=== PATIENT | female | born 1985 ===

== ENCOUNTER 2016-12-29 07:59 | Day surgery (SDC) | payer BC ==
[~2016-12-29] VITALS: Ht 162.6 cm; Wt 77.1 kg
[2016-12-29] VITALS (8 sets, daily range): BP systolic 102–115; BP diastolic 55–77
--- NOTE | 2016-12-29 06:49 | Anethesia Preoperative Eval ---
Anesthesia Pre-op PMH/ROS General Date of Evaluation: Dec 29, 2016 Time of Evaluation: 09:22 Anesthesiologist: renée ASA Score: ASA 2 Mallampati Score Class I : Soft palate, uvula, fauces, pillars visible Class II: Soft palate, uvula, fauces visible Class III: Soft palate, base of uvula visible Class IV: Only hard plate visible Mallampati Classification: Class II Surgeon: nelly Diagnosis: rectal bleeding Surgical Procedure: colonoscopy Anesthesia History: none Social History: smoking - non-smoker Family History: no anesthesia problems Allergies: Coded Allergies: No Known Allergies (Unverified , 06/09/16) Medications: see eMAR Past Medical History Gastrointestinal/Genitourinary: Reports: GERD, other - hx/o placenta previa, pyelonephritis HEENT: Reports: glaucoma, other - astigmatism, missing upper left molar Hematology/Immune: Reports: anemia Musculoskeletal/Integumentary: Reports: other - bilateral carpal tunnel syndrome PSxH Narrative: LEEP Anesthesia Pre-op Phys. Exam Physician Exam Last Vital Signs Date Time Temp Pulse Resp B/P Pulse Ox O2 Delivery O2 Flow Rate FiO2 12/29/16 08:50 97.7 69 18 115/62 97 Room Air Constitutional: NAD Neurologic: CN 2-12 intact Cardiovascular: RRR Respiratory: CTA Gastrointestinal: S/NT/ND Airway Exam Mallampati Score: Class II MO: full Neck: supple TMD: 3fb ROM: full Teeth: missing - left upper molar Anesthesia Pre-op A/P Labs Labs Test 12/29/16 08:30 Urine HCG, Qualitative Negative Risk Assessment & Plan Assessment: rectal bleeding Plan: colonoscopy Status Change Before Surgery: No Pre-Antibiotics Drug: TRISTON Reyes Dec 29, 2016 06:49
[~2016-12-29 07:59] MED LIST: LR 1000ml 1,000 ML IVLG SCH; NKM
--- NOTE | 2016-12-29 09:20 | Short Stay Surgery H&P ---
History of Present Illness History of Present Illness Chief Complaint screening colon HPI Sara Villareal is a 31 year old female who was admitted on for Rectal Bleeding Patient History Allergies: Coded Allergies: No Known Allergies (Unverified , 06/09/16) PAST MEDICAL HISTORY: Past Surgeries: Social History: Medication History Scheduled No Known Medications* (NKM - No Known Medications*), 0 ., (Reported) Review of Systems Cardiovascular: Reports: no symptoms Respiratory: Reports: no symptoms Skeletal: Reports: no symptoms Gastrointestinal: Reports: no symptoms Genitourinary: Reports: no symptoms Neurologic: Reports: no symptoms Endocrine: Reports: no symptoms Hematologic: Reports: no symptoms Physical Exam Vital Signs Last Vital Signs Date Time Temp Pulse Resp B/P Pulse Ox O2 Delivery O2 Flow Rate FiO2 12/29/16 08:50 97.7 69 18 115/62 97 Room Air Labs Laboratory Tests Test 12/29/16 08:30 Urine HCG, Qualitative Pending Skin: normal HENT: normal Heart: normal Lungs: normal Abdomen: normal Extremities: normal Genitourinary: normal Plan Plan of Care Total colonoscopy Preop Interventions None Summary of Findings See the reports Final Diagnosis: Attestation Are the patient's medical conditions optimized for surgery? Attestation Response: yes MEGAN QUINN Dec 29, 2016 09:20
--- NOTE | 2016-12-29 09:21 | Pre-Procedure Note/Attestation ---
Pre-Procedure Note/Attestation Complete Prior to Procedure Planned Procedure: left Procedure Narrative: Total colon endoscopic exam Indications for Procedure Pre-Operative Diagnosis: R/O hemorrhoids VS polyps/tumors/colitis Attestation I attest that I discussed the nature of the procedure; its benefits; risks and complications; and alternatives (and the risks and benefits of such alternatives ), prior to the procedure, with the patient (or the patient's legal metals sales representative). I attest that, if there was a reasonable possibility of needing a blood transfusion, the patient (or the patient's legal metals sales representative) was given the [facility] standardized written summary, pursuant to the [place] Blood Safety Act ([place] Health and Safety Code # 1645, as amended). I attest that I re-evaluated the patient just prior to the surgery and that there has been no change in the patient's H&P, except as documented below: KAI,SAID Dec 29, 2016 09:21
[2016-12-29] MEDS ORDERED: Propofol 10mg/ml 20ml IV ONE (09:30)
[2016-12-29] MEDS ORDERED: LR 1000ml ONE (09:30)
[2016-12-29] MEDS ORDERED: Lidocaine 1% MPF 10mg/ml 5ml ONE (09:30)
--- NOTE | 2016-12-29 09:50 | Endoscopy Procedure Note ---
Endoscopy Procedure Note Indication for Procedure: Rectal bleeding Procedures Performed: colonoscopy - Poor colon prep. Minimal internal hemorrhoids (mostly cause of the rectal bleeding), redundant left colon; otherwise normal total colonoscopy. Specimen: none Pt Tolerated Procedure Well: Yes Estimated Blood Loss: none Anesthesiologist: Dr. Jenkins Anesthesia: moderate sedation Medication Given: see anesthesia record 50 yrs or older w/o bx or poly: No 10yrs. F/U not recommended: Yes 10 yrs. F/U needed: No 18 years or older w/prev. colo: No <3yrs. since last colonoscopy: No System Reason:<3 yrs.: MEGAN QUINN Dec 29, 2016 09:50
--- NOTE | 2016-12-29 09:52 | Discharge Instructions ---
Discharge Instructions Discharge Instructions Follow up with: eugenio the doctor after 2 weeks in the office For Congestive Heart Failure Reminder Report to your physician any weight gain of 5 pounds or more in one week. MEGAN QUINN Dec 29, 2016 09:52
[2016-12-29] MEDS ORDERED: LR 1000ml 1,000 ML IVLG SCH (10:03)
--- NOTE | 2016-12-29 10:08 | Immediate Post-Op Evaluation ---
Immediate Post-Op Evalulation Immediate Post-Op Evalulation Procedure: colonoscopy Date of Evaluation: Dec 29, 2016 IV Fluids: lr 350ml Blood Products: none Estimated Blood Loss: negligible Blood Pressure Systolic: 115 Blood Pressure Diastolic: 70 Pulse Rate: 69 Respiratory Rate: 19 O2 Sat by Pulse Oximetry: 100 Temperature (Fahrenheit): 97.0 Pain Score (1-10): 0 Nausea: No Vomiting: No Complications none Patient Status: awake, reacts, patent Hydration Status: adequate Drug: TRISTON Reyes Dec 29, 2016 10:08
[2016-12-29] MEDS ORDERED: Midazolam 2mg/2ml Inj IVP PRN (10:15)
[2016-12-29] MEDS ORDERED: DiphenhydrAMINE 50mg/ml Inj IVP PRN (10:15)
[2016-12-29] MEDS ORDERED: Atropine Inj 1mg/10ml Syr IV PRN (10:15)
[2016-12-29] MEDS ORDERED: Hydromorphone 0.5mg/0.5ml inj IVP PRN (10:15)
--- NOTE | 2016-12-29 23:00 | Operative Note - Dictated ---
DATE OF OPERATION: 12/29/2016 PROCEDURE: Total colonoscopy. SURGEON: Shaylee Huizar M.D. PREOPERATIVE DIAGNOSIS: History of rectal bleeding. POSTOPERATIVE DIAGNOSES: 1. Highly redundant left colon with minimal internal hemorrhoids, which mostly seems to be the cause of rectal bleeding. 2. Poor colonic preparation. MEDICATION USED: Per Dr. Calvin. INSTRUMENT: GIF Olympus video colonoscope. DESCRIPTION OF PROCEDURE: The patient after arriving to the endoscopy unit, was told about risks and benefits of the procedure, which she accepted and signed the informed consent. The patient had already been seen three months ago undergoing a trial of total colonoscopy for the same problem, however, because of the lack of adequate preparation, the examination was done partially and referred back to this examination with better cleanup hopefully. At this time, after adequate IV sedation, the scope gently passed through the anal area, which revealed evidence of minimal internal hemorrhoid. However, there were not friable. At this time, a retroflexion maneuver was also applied in the rectum, which revealed presence of minimal internal hemorrhoids without friability. The rest of the rectum looked normal. There was no evidence of ulcers, tumors, polyps, inflammatory process, etc. At this point, the scope was passed through highly redundant left colon gradually reaching towards the left splenic flexure. There was presence of liquidy stool along the colon signifying the lack of adequate preparation and as such, the presence of a small diminutive polypoid lesion could not be ruled out, though there was no any major pathology such as diverticular lesions, polyps or tumors found. At this time, there was no colitis. Finally, the scope got to the splenic flexure, from there into transverse colon, hepatic flexure, all the way to the right colon, the base of the cecum was visualized. All these areas remained to be normal without any particular pathology. At this point, within 7 minutes, the scope was gradually pulled out and the procedure was terminated. The patient tolerated the procedure well and left the endoscopy room in good condition. Shaylee Huizar M.D. DR: VAISHALI JOB#: [id number] CC:
== END 2016-12-29 11:05 | disposition home or self-care (01) ==
LOC: GAS 07:59
DX: Z12.11 Encounter for screening for malignant neoplasm of colon (principal); K62.5 Hemorrhage of anus and rectum; Q43.8 Other specified congenital malformations of intestine; K64.8 Other hemorrhoids; K21.9 Gastro-esophageal reflux disease without esophagitis; H40.9 Unspecified glaucoma; H52.209 Unspecified astigmatism, unspecified eye; D64.9 Anemia, unspecified; G56.03 Carpal tunnel syndrome, bilateral upper limbs
CPT/HCPCS: 45378; 81025; J2704; J7120; 94003; 94150